=== PATIENT | male | born 1985 | race Caucasian/White ===

== ENCOUNTER 2017-10-13 10:42 | Emergency (ER) | payer BC ==
[~2017-10-13] VITALS: Ht 177.8 cm; Wt 69.0 kg
[2017-10-13 10:44] VITALS: Ht 177.8 cm; Wt 69.0 kg
[2017-10-13] MEDS ORDERED: SULF1TAB31 PO (11:39)
[2017-10-13] MEDS ORDERED: MUPI22OI2 TOP (11:39)
--- NOTE | 2017-10-13 12:30 | ERD ---
ER Documentation Chief Complaint Chief Complaint genital pain x 3 days HPI 32-year-old male comes in with swelling to the penis that started 3 days ago. There is a small area on the right side that is starting to scab and there is yellow to greenish colored discharge that was coming out of that area today. He was seen yesterday in urgent care and was treated, he was given a steroid shot and given prescriptions for Keflex, prednisone and Benadryl. He started the prednisone yesterday but the Keflex he has taken 1 dose today so far. Swelling started on the right side of the penis, is now circumferential, has reported some areas of pustules. He has not had any fevers or chills. He states that he is sexually active but his partner is asymptomatic. He has had recent STD testing including syphilis at the gain was considered were negative. ROS All systems reviewed and are negative except as per history of present illness. Medications Home Meds Active Scripts Mupirocin* (Bactroban*) 2% -22 Gram Oint...g., 1 APPLIC TOP BID for 7 Days, EA Prov:ABBI CHAPPELL PA-C 10/13/17 Sulfamethoxazole/Trimethoprim* (Bactrim Ds* Tablet) 1 Each Tablet, 1 TAB PO BID , #14 TAB Prov:ABBI CHAPPELL PA-C 10/13/17 PMhx/Soc History of Surgery: Yes (Tosillectomy and deviated septum.) Anesthesia Reaction: No Hx Neurological Disorder: No Hx Respiratory Disorders: No Hx Cardiac Disorders: No Hx Psychiatric Problems: No Hx Miscellaneous Medical Probl: No Hx Alcohol Use: Yes (social drinker) Hx Substance Use: Yes (marijuana) Hx Tobacco Use: No Smoking Status: Former smoker Physical Exam Vitals Vital Signs Date Time Temp Pulse Resp B/P Pulse Ox O2 Delivery O2 Flow Rate FiO2 10/13/17 10:44 98.7 89 19 127/71 97 Physical Exam General: Well-developed, well-nourished. The patient appears in no acute distress. HEENT: Head is normocephalic, atraumatic. No scleral icterus. Neck: Supple. Nontender. Lungs: Clear to auscultation. Normal air movement. Heart: Regular rate and rhythm. S1 and S2 are normal. No murmurs, gallops, or rubs. Abdomen: Nondistended. Extremities: No clubbing or cyanosis. Moving extremities x 4. No weakness. Exam: Penis: proximal to the glans penis there was an area of scabbing, 2 as well as a pustule. There is swelling circumferential, tenderness, warmth and erythema. Scrotum: Normal Hernia: None Testes/Epid: Non-tender w/ normal lie Cremaster: Reflex intact Lymph: No inguinal lymphadenopathy Discharge: None Neurologic: Alert and oriented 3. No focal deficits. Normal speech and gait. Skin: Normal turgor. No rash or lesions. Procedures/MDM ED course: Small incision procedure performed, patient was verbally consented. Discussed with the patient diabetic given the infection and evidence of swelling, this may be an early abscess, will remove the crusting and pustule to allow for drainage to occur. Performed by my attending physician, using a 19-gauge needle , removed the crusting and pustule. No purulent drainage returned. Medical decision makin-year-old male presents with cellulitis to the penis , patient was given a prescription for Keflex and prednisone, he was advised to continue the medications and will also add Bactrim and Bactroban to apply topically to the areas where we did the procedure. The patient does not have any systemic complaints, evidence of syphilis, deep space infection. There is no evidence of Alisha's gangrene, or epididymitis. He will be advised to recheck the area in 1-2 days and return sooner for any worsening or new symptoms. The case was reviewed and discussed with Dr. Weaver who agrees with the plan of care as appropriate. Departure Diagnosis: Primary Impression: Penile cellulitis Condition: Good Patient Instructions: Cellulitis Additional Instructions: Follow-up for wound check in 1-2 days. Return sooner if any worsening or new symptoms. Continue Keflex, prednisone as prescribed. ABBI CHAPPELL PA-C Oct 13, 2017 12:30
== END 2017-10-13 12:01 | disposition home or self-care (01) ==
LOC: FTE 10:42
DX: N48.22 Cellulitis of corpus cavernosum and penis (principal); Z87.891 Personal history of nicotine dependence

== ENCOUNTER 2017-10-20 13:16 | Emergency (ER) | payer BC ==
[~2017-10-20] VITALS: Ht 172.7 cm; Wt 69.3 kg
[~2017-10-20 13:16] MED LIST: MUPI22OI2 TOP; SULF1TAB31 PO
[2017-10-20 13:20] VITALS: Ht 172.7 cm; Wt 69.3 kg
[2017-10-20] MEDS ORDERED: ONDANSETRON (ODT) 4 MG TAB ODT STA (14:27)
[2017-10-20] MEDS ORDERED: HYDROCODONE/APAP (5/325) TAB PO ONE (14:30)
[2017-10-20] MEDS ORDERED: LIDOCAINE 1% (MDV) 20 ML INJ SC ONE (14:30)
[2017-10-20] MEDS ORDERED: LORAZEPAM 1 MG TAB PO ONE (15:00)
[2017-10-20] MEDS ORDERED: DOXY100T20 PO (15:11)
[2017-10-20] MEDS ORDERED: NAPR-260 PO (15:11)
[2017-10-20] MEDS ORDERED: LORA-441 PO (16:07)
--- NOTE | 2017-10-20 17:11 | ERD ---
ER Documentation Chief Complaint Chief Complaint penile cellulitis not improving p sulfa, keflex, prednisone, mupirocin crea HPI This patient is an otherwise healthy 32-year-old male presenting to the emergency department with complaints of a pustule to his penis which has been ongoing intermittently for the past 1.5 weeks. Patient was seen here approximately 7 days ago and had a small incision made on the penis with some pustular drainage. The patient has finished a course of Keflex, Bactrim, prednisone and has used mupirocin topically. Overall symptoms have improved. The patient is sexually active, however his partner is asymptomatic. The patient was recently tested for sexually transmitted infections, which were all reportedly negative. Patient reports associated symptoms of swelling and pain. Pain is exacerbated with palpation of the area. The patient denies fevers, chills, testicular pain, trauma, or other symptoms at this time. In addition to these complaints, the patient also states that he takes Klonopin for anxiety , and ran out recently and he is requesting a short amount of tablets as a refill until he can make it to his primary care physician for refill. No SI or HI mentioned. ROS All systems reviewed and are negative except as per history of present illness. Medications Home Meds Active Scripts Lorazepam* (Ativan*) 0.5 Mg Tablet, 0.5 MG PO Q8, #10 TAB Prov:BEBETO LAM PA-C 10/20/17 Naproxen* (Naprosyn*) 500 Mg Tablet, 500 MG PO BID Y for PAIN AND/OR INFLAMMATION, #30 TAB Prov:BEBETO LAM PA-C 10/20/17 Doxycycline Hyclate* (Doxycycline Hyclate*) 100 Mg Tablet.dr, 100 MG PO BID for 10 Days, #20 TAB Prov:BEBETO LAM PA-C 10/20/17 Mupirocin* (Bactroban*) 2% -22 Gram Oint...g., 1 APPLIC TOP BID for 7 Days, EA Prov:ABBI CHAPPELL PA-C 10/13/17 Sulfamethoxazole/Trimethoprim* (Bactrim Ds* Tablet) 1 Each Tablet, 1 TAB PO BID , #14 TAB Prov:ABBI CHAPPELL PA-C 10/13/17 PMhx/Soc History of Surgery: Yes (Tosillectomy and deviated septum.) Anesthesia Reaction: No Hx Neurological Disorder: No Hx Respiratory Disorders: No Hx Cardiac Disorders: No Hx Psychiatric Problems: No Hx Miscellaneous Medical Probl: No Hx Alcohol Use: Yes (social drinker) Hx Substance Use: Yes (marijuana) Hx Tobacco Use: No Physical Exam Vitals Vital Signs Date Time Temp Pulse Resp B/P Pulse Ox O2 Delivery O2 Flow Rate FiO2 10/20/17 13:20 98.2 110 20 124/82 98 Physical Exam Const: Nontoxic, well-appearing male in no acute distress. Head: Atraumatic Eyes: Normal Conjunctiva ENT: Normal External Ears, Nose and Mouth. Abd: Soft, non tender, non distended. Normal bowel sounds Exam: Penis: There is circumferential swelling of the penis which is mild in severity. There is a small pustule noted to the right lateral portion of the shaft of the penis with no active drainage currently. No significant surrounding erythema. Scrotum: Normal Testes/Epid: Non-tender w/ normal lie Lymph: No inguinal lymphadenopathy Discharge: None Skin: No petechiae or rashes Ext: No cyanosis, or edema Neur: Awake and alert Psych: Normal Mood and Affect Results 24 hrs Current Medications Medications (Trade) Dose Ordered Sig/Meron Route PRN Reason Start Time Stop Time Status Last Admin Dose Admin Lidocaine (Xylocaine 1% (Mdv) 20 ml) 20 ml ONCE ONCE SC 10/20/17 14:30 10/20/17 14:31 DC Acetaminophen/ Hydrocodone Bitart ([place] (5/325)) 1 tab ONCE ONCE PO 10/20/17 14:30 10/20/17 14:31 DC 10/20/17 14:32 Ondansetron HCl (Zofran Odt) 4 mg ONCE STAT ODT 10/20/17 14:27 10/20/17 14:28 DC 10/20/17 14:32 Lorazepam (Ativan) 1 mg ONCE ONCE PO 10/20/17 15:00 10/20/17 15:01 DC 10/20/17 14:36 Procedures/MDM This is a very pleasant 32-year-old male presenting to the emergency department with complaints of pustule to his penis. Additionally he is requesting a refill of his antianxiety medication, because he has not been able to see his primary care physician. I believe it is reasonable to refill him for a short course of Ativan until he can see his primary care physician. He did not mention HI or SI. Examination of the penis does show a small pustule noted to the right lateral portion of the penis shaft. The attending physician, Dr. Ilir Graham did examine the patient bedside and agreed with plan for incision and drainage. The patient was verbally consented and the procedure was performed successfully with active drainage. See procedure note below. There were no signs of significant cellulitis. Patient was treated for anxiety and pain prior to the procedure being performed. After the procedure, the patient was stable for discharge with prescriptions. No evidence of life-threatening pathology at time of discharge. Pt/family in agreement with discharge plan/ diagnosis. Pt/family advised to return immediately with any new or worsening symptoms. Follow-up with primary care physician within the next 1-2 days. Abscess Incision and Drainage with irrigation by me: Location: Penis shaft Anesthesia: [Local 1% Lidocaine] Technique: Sterile pus was expressed with pressure. Packing: [None] Complications: [Neurovascularly intact post procedure] 48 hour wound check. Scar minimization instructions given. Patient's skin symptoms have stabilized while they have been evaluated in the department and are appropriate for outpatient care and work up. Exam and w/u not consistent w/ sepsis, deep space infection, or foreign body. Departure Diagnosis: Primary Impression: Penile abscess Condition: Fair Patient Instructions: Abscess, Incision And Drainage Referrals: MAXIM CLAROS MD, GREG J MD SHAPIRO, LAWRENCE J [facility] YOU HAVE RECEIVED A MEDICAL SCREENING EXAM AND THE RESULTS INDICATE THAT YOU DO NOT HAVE A CONDITION THAT REQUIRES URGENT TREATMENT IN THE EMERGENCY DEPARTMENT. FURTHER EVALUATION AND TREATMENT OF YOUR CONDITION CAN WAIT UNTIL YOU ARE SEEN IN YOUR DOCTORS OFFICE WITHIN THE NEXT 1-2 DAYS. IT IS YOUR RESPONSIBILITY TO MAKE AN APPOINTMENT FOR FOLOW-UP CARE. IF YOU HAVE A PRIMARY DOCTOR --you should call your primary doctor and schedule an appointment IF YOU DO NOT HAVE A PRIMARY DOCTOR YOU CAN CALL OUR PHYSICIAN REFERRAL HOTLINE AT IF YOU CAN NOT AFFORD TO SEE A PHYSICIAN YOU CAN CHOSE FROM THE FOLLOWING [facility] [address] [facility] [facility] [address] [facility] [facility] [address] [facility] [facility] [address] [facility]. [facility] [address] [facility]. [facility] [address] Additional Instructions: Call your primary care doctor TOMORROW for an appointment during the next 1-2 days.See the doctor sooner or return here if your condition worsens before your appointment time. Call your primary care doctor TOMORROW for an appointment during the next 1 WEEK.Tell the accredited legal secretary that you were referred from this facility. See the doctor sooner or return here if your condition worsens before your appointment time. BEBETO LAM PA-C Oct 20, 2017 17:11
--- NOTE | 2017-10-22 14:37 | EN ---
Date/Time of Note Date/Time of Note DATE: 10/22/17 TIME: 14:36 ER Progress Note This patient is a 32-year-old male, I called him today on 10-22-2017 at 1436. Spoke with the patient himself. He states his pain and pressure has resolved to the penis. He is doing well. Gave him recommendation to follow-up with dermatology if he continues to have symptoms. He is to return immediately to the emergency department for any new or worsening symptoms. BEBETO LAM PA-C Oct 22, 2017 14:37
== END 2017-10-20 16:12 | disposition home or self-care (01) ==
LOC: FTE 13:16
DX: N48.21 Abscess of corpus cavernosum and penis (principal)
CPT/HCPCS: 99284